=== PATIENT | male | born 1980 | race Caucasian/White ===

== ENCOUNTER 2024-02-14 23:33 | Emergency (ER) | payer MEDICAID ==
[~2024-02-14] VITALS: Ht 182.9 cm; Wt 91.3 kg
[2024-02-14 23:37] VITALS: PULSE 110
[2024-02-14 23:59] VITALS: BP 106/65; RESP 16; TEMP 97.8; O2SAT 97
== END 2024-02-15 03:10 | disposition left against medical advice (07) ==
LOC: ER 02-15 00:05
DX: M25.571 Pain in right ankle and joints of right foot (principal); Z53.21 Procedure and treatment not carried out due to patient leaving prior to being seen by health care provider
CPT/HCPCS: 73610; 99281